=== PATIENT | male | born 1940 ===

== ENCOUNTER 2018-02-18 12:41 | Inpatient (IN) | payer OTHER ==
[~2018-02-18] VITALS: Ht 175.3 cm; Wt 35.4 kg
[2018-02-25] MEDS ORDERED: ATACAN PO (14:01)
[2018-02-25] MEDS ORDERED: METOPROLOL ER-1 EAC1 PO (14:01)
[2018-02-25] MEDS ORDERED: ZOCOR5 MG PO (14:02)
[2018-02-25] MEDS ORDERED: OXICODONE PO (14:02)
[2018-02-25] MEDS ORDERED: TRAMADOL HCL50 MG PO (14:03)
[2018-02-25] MEDS ORDERED: CARBAMAZEPINE100 M1 PO (14:03)
[2018-03-05] MEDS ORDERED: ATACAND4 MG PO (10:15)
[2018-03-05] MEDS ORDERED: OXYCODONE HCL5 MG PO (10:15)
== END 2018-03-06 18:04 | DRG 455 ==
LOC: O/R 03-05 04:15 → EDSEX 03-05 04:15 → SURG 03-05 09:45 → PED 03-05 18:23
PROVIDERS: Orthopaedic Surgery Orthopaedic Surgery of the Spine
PROC: 0SG1071 Fusion of 2 or more Lumbar Vertebral Joints with Autologous Tissue Substitute, Posterior Approach, Posterior Column, Open Approach (ICD-10-PCS; 2018-03-05)
PROC: 0ST20ZZ Resection of Lumbar Vertebral Disc, Open Approach (ICD-10-PCS; 2018-03-05)
PROC: 0SG10AJ Fusion of 2 or more Lumbar Vertebral Joints with Interbody Fusion Device, Posterior Approach, Anterior Column, Open Approach (ICD-10-PCS; 2018-03-05)
PROC: 07DS3ZZ Extraction of Vertebral Bone Marrow, Percutaneous Approach (ICD-10-PCS; 2018-03-05)
PROC: 0SG10A0 Fusion of 2 or more Lumbar Vertebral Joints with Interbody Fusion Device, Anterior Approach, Anterior Column, Open Approach (ICD-10-PCS; principal; 2018-03-05 09:45)
DX: M41.56 Other secondary scoliosis, lumbar region (principal); M48.061 Spinal stenosis, lumbar region without neurogenic claudication; M51.16 Intervertebral disc disorders with radiculopathy, lumbar region; I10 Essential (primary) hypertension